=== PATIENT | female | born 1980 | race Two or more races ===

== ENCOUNTER 2020-03-21 10:35 | Outpatient (CLI) | payer OTHER ==
[~2020-03-21] VITALS: Ht 157.5 cm; Wt 49.9 kg
== END 2020-03-21 11:20 | disposition home or self-care (01) ==
LOC: OFIC 805 10:35
PROVIDERS: ATTEND Otolaryngology
DX: L29.8 Other pruritus (principal); L30.8 Other specified dermatitis